=== PATIENT | female | born 1990 | race Caucasian/White ===

== ENCOUNTER 2023-07-15 11:02 | Emergency (ER) | payer BC ==
--- NOTE | 2023-07-15 11:51 | ED ---
General Adult HPI - General Chief complaint: Shortness of Breath Stated complaint: SHEILA, 35 wks Time Seen by Provider: 07/15/23 11:18 Source: patient Mode of arrival: ambulatory Limitations: no limitations - History of Present Illness Initial comments: 33 year old Female presenting to the ED with a chief complaint of dyspnea. Patient states has had some upper respiratory symptoms and dyspnea for the past few days. Was tested and diagnosed with COVID today. States due to her symptoms she called her OB who advised her to present to the ED for further evaluation. Today, patient reports shortness of breath significantly improved from last night. States that she is more worried about the baby and she is herself. Chest pain. No abdominal pain. No vaginal bleeding. No other complaints. - Related Data Allergies Allergy/AdvReac Type Severity Reaction Status Date / Time Sulfa (Sulfonamide Allergy Rash/Hives Verified 07/15/23 11:12 Antibiotics) Review of Systems ROS Statement: Those systems with pertinent positive or pertinent negative responses have been documented in the HPI. ROS Other: All systems not noted in ROS Statement are negative. Past Medical History Past Medical History: No Reported History History of Any Multi-Drug Resistant Organisms: None Reported Past Surgical History: No Surgical Hx Reported Past Psychological History: Anxiety, Depression Smoking Status: Never smoker Past Alcohol Use History: None Reported Past Drug Use History: None Reported General Exam Limitations: no limitations General appearance: alert, in no apparent distress Neck exam: Present: normal inspection Respiratory exam: Present: normal lung sounds bilaterally Cardiovascular Exam: Present: regular rate, normal rhythm GI/Abdominal exam: Present: soft Neurological exam: Present: alert, oriented X3 Skin exam: Present: warm, dry Course Vital Signs 07/15/23 11:09 Temperature 97.9 F Pulse Rate 124 H Respiratory 20 Rate Blood Pressure 105/71 O2 Sat by Pulse 97 Oximetry - Reevaluation(s) Reevaluation #1: Evaluated OB nurse. Reports good heart tones. 07/15/23 13:20 Medical Decision Making - Medical Decision Making Was pt. sent in by a medical professional or institution (, PA, BAND INSTRUMENT MAKER, urgent care, hospital, or fdc...) When possible be specific @ -No Did you speak to anyone other than the patient for history (EMS, parent, family, police, friend...)? What history was obtained from this source @ -No Did you review nursing and triage notes (agree or disagree)? Why? @ -I reviewed and agree with nursing and triage notes Were old charts reviewed (outside hosp., previous admission, EMS record, old EKG, old radiological studies, urgent care reports/EKG's, fdc records)? Report findings @ -No old charts were reviewed Differential Diagnosis (chest pain, altered mental status, abdominal pain women, abdominal pain men, vaginal bleeding, weakness, fever, dyspnea, syncope, headache, dizziness, GI bleed, back pain, seizure, CVA, palpatations, mental health, musculoskeletal)? @ -Differential Dyspnea: Coronary syndrome, arrhythmia, tamponade, asthma, COPD, pulmonary embolism, pneumonia, pneumothorax, pulmonary effusion, anaphylaxis, diabetic ketoacidosis, flailed chest, pulmonary contusion, diaphragmatic rupture, anemia, neuromuscular, this is not meant to be an all-inclusive list. EKG interpreted by me (3pts min.). @ -None X-rays interpreted by me (1pt min.). @ -X-ray was offered in context of dyspnea however patient reports at this time dyspnea resolved and would not like to have chest x-ray due to her currently being . CT interpreted by me (1pt min.). @ -None done U/S interpreted by me (1pt. min.). @ -None done What testing was considered but not performed or refused? (CT, X-rays, U/S, labs)? Why? @ -None What meds were considered but not given or refused? Why? @ -None Did you discuss the management of the patient with other professionals (professionals i.e. , PA, BAND INSTRUMENT MAKER, lab, RT, psych nurse, social media editor, cotton candy maker, teacher, foreign policy officer, supervisor case loading)? Give summary @ -No Was smoking cessation discussed for >3mins.? @ -No Was critical care preformed (if so, how long)? @ -No Were there social determinants of health that impacted care today? How? (Homelessness, low income, unemployed, alcoholism, drug addiction, transportation, low edu. Level, literacy, decrease access to med. care, long term, rehab)? @ -No Was there de-escalation of care discussed even if they declined (Discuss DNR or withdrawal of care, Hospice)? DNR status @ -No What co-morbidities impacted this encounter? (DM, HTN, Smoking, COPD, CAD, Cancer, CVA, ARF, Chemo, Hep., AIDS, mental health diagnosis, sleep apnea, morbid obesity)? @ - Was patient admitted / discharged? Hospital course, mention meds given and route, prescriptions, significant lab abnormalities, going to OR and other pertinent info. @ -Disharge 33-year-old female who is currently 35 weeks presents to the ED with concerns of dyspnea last night however now resolved. Patient reports that she is more so worried about baby and herself. Patient seen by OB nurse reported good heart tones. Patient was offered to be transferred upstairs for further monitoring however at this time patient declined. Patient discharged home in stable condition. Discussed return precautions with patient who verbalizes treatment. Undiagnosed new problem with uncertain prognosis? @ -No Drug Therapy requiring intensive monitoring for toxicity (Heparin, Nitro, Insulin, Cardizem)? @ -No Were any procedures done? @ -No Diagnosis/symptom? @ -Dyspnea, now resolved Acute, or Chronic, or Acute on Chronic? @ -Acute Uncomplicated (without systemic symptoms) or Complicated (systemic symptoms)? @ -Uncomplicated Side effects of treatment? @ -No Exacerbation, Progression, or Severe Exacerbation? @ -No Poses a threat to life or bodily function? How? (Chest pain, USA, ME, pneumonia, PE, COPD, DKA, ARF, appy, cholecystitis, CVA, Diverticulitis, Homicidal, Suicidal, threat to staff... and all critical care pts) @ -No - Lab Data Lab Results 07/15/23 Range/Units 12:06 Urine Color Crisp Urine Appearance Clear (Clear) Urine pH 6.0 (5.0-8.0) Ur Specific [place] 1.030 (1.001-1.035) Urine Protein 1+ H (Negative) Urine Glucose (UA) Negative (Negative) Urine Ketones Negative (Negative) Urine Blood Negative (Negative) Urine Nitrite Negative (Negative) Urine Bilirubin Negative (Negative) Urine Urobilinogen 2.0 (<2.0) mg/dL Ur Leukocyte Esterase Moderate (Negative) Urine RBC 5 (0-5) /hpf Urine WBC 23 H (0-5) /hpf Urine WBC Clumps Few H (None) /hpf Ur Squamous Epith Cells 35 H (0-4) /hpf Calcium Oxalate Crystal Few H (None) /hpf Urine Bacteria Rare H (None) /hpf Urine Mucus Many H (None) /hpf Disposition Clinical Impression: Dyspnea Disposition: HOME SELF-CARE Condition: Good Additional Instructions: Please return to the Emergency Department if symptoms worsen or any other concerns. Please follow-up with your OPTICAL SCIENTIST. Is patient prescribed a controlled substance at d/c from ED?: No Referrals: None,Stated [Primary Care Provider] - 1-2 days Time of Disposition: 13:25
[2023-07-15 11:52] VITALS: RESP 20; TEMP 97.9
[2023-07-15 13:03] LABS: Appearance,Urine Clear (Clear); Color,Urine Orange
[2023-07-15 13:04] LABS: Glucose,Urine (UA) Negative (Negative); Protein,Urine 1+ (Negative)
[2023-07-15 13:05] LABS: Bilirubin,Urine Negative (Negative); Blood,Urine Negative (Negative); Ketones,Urine Negative (Negative); Leukocyte Esterase,Urine Moderate (Negative); Nitrite,Urine Negative (Negative)
[2023-07-15 13:10] LABS: Bacteria,Urine Rare /hpf; Calcium Oxalate Crystals,Urine Few /hpf; Mucus,Urine Many /hpf; RBC,Urine 5 /hpf (0-5); Squamous Epithelial Cell,Urine 35 /hpf (0-4); WBC,Urine 23 /hpf (0-5)
[2023-07-15 13:53] VITALS: BP 110/68; PULSE 92
== END 2023-07-15 13:41 | disposition home or self-care (01) ==
LOC: EC 11:02
DX: O99.891 Other specified diseases and conditions complicating pregnancy (principal); R06.00 Dyspnea, unspecified; Z88.2 Allergy status to sulfonamides; Z86.59 Personal history of other mental and behavioral disorders; Z3A.35 35 weeks gestation of pregnancy
CPT/HCPCS: 81001; 99284

== ENCOUNTER 2023-07-28 16:44 | Observation (INO) | payer BC ==
[2023-07-28 18:21] LABS: Creatinine,Urine Random 138.9 mg/dL; Protein/Creatinine Ratio,Urine 0.079
[2023-07-28 18:35] LABS: Basophils % (A) 0 %; Eosinophils # (A) 0.1 k/uL (0-0.7); Eosinophils % (A) 1 %; HGB 12.4 gm/dL (11.4-16.0); Lymphocytes % (A) 17 %; MCH 27.5 pg (25.0-35.0); MCHC 32.7 g/dL (31.0-37.0); Monocytes # (A) 0.7 k/uL (0-1.0); Monocytes % (A) 5 %; Neutrophils # (A) 8.9 k/uL (1.3-7.7); Neutrophils % (A) 74 %; Platelet Count 253 k/uL (150-450); RBC 4.53 m/uL (3.80-5.40); RDW 14.4 % (11.5-15.5)
[2023-07-28 18:41] LABS: ALT 55 U/L (4-34); AST 34 U/L (14-36); African American GFR (CKD) >90 (>60 ml/min/1.73 sqM); Blood Urea Nitrogen 8 mg/dL (7-17); LDH 157 U/L (120-246); Non-African American GFR(CKD) >90 (>60 ml/min/1.73 sqM); Uric Acid 5.2 mg/dL (3.7-7.4)
[2023-07-28] MEDS ORDERED: ACETAMINOPHEN TAB 325 MG TAB PO PRN (19:13)
[2023-07-29 05:41] LABS: Creatinine,Urine Random 153.1 mg/dL; Protein/Creatinine Ratio,Urine 0.085
[2023-07-29 06:35] LABS: Amorphous Sediment,Urine Rare /hpf; Appearance,Urine Cloudy (Clear); Bacteria,Urine Rare /hpf; Bilirubin,Urine Negative (Negative); Blood,Urine Negative (Negative); Calcium Oxalate Crystals,Urine Moderate /hpf; Color,Urine Yellow; Glucose,Urine (UA) Negative (Negative); Ketones,Urine Negative (Negative); Leukocyte Esterase,Urine Moderate (Negative); Mucus,Urine Rare /hpf; Nitrite,Urine Negative (Negative); PH, Urine 6.5 (5.0-8.0); Protein,Urine Trace (Negative); RBC,Urine <1 /hpf (0-5); Specific Gravity,Urine 1.022 (1.001-1.035); Squamous Epithelial Cell,Urine 31 /hpf (0-4); Urobilinogen,Urine <2.0 mg/dL (<2.0); WBC,Urine 5 /hpf (0-5)
[2023-07-29 07:05] LABS: Basophils % (A) 0 %; Eosinophils # (A) 0.1 k/uL (0-0.7); Eosinophils % (A) 2 %; HGB 11.4 gm/dL (11.4-16.0); Lymphocytes # (A) 1.8 k/uL (1.0-4.8); Lymphocytes % (A) 18 %; MCH 28.1 pg (25.0-35.0); MCHC 33.4 g/dL (31.0-37.0); MCV 84.1 fL (80.0-100.0); Mean Platelet Volume 8.7; Monocytes # (A) 0.6 k/uL (0-1.0); Monocytes % (A) 6 %; Neutrophils # (A) 6.9 k/uL (1.3-7.7); Neutrophils % (A) 72 %; Platelet Count 227 k/uL (150-450); RBC 4.04 m/uL (3.80-5.40); RDW 14.3 % (11.5-15.5); WBC 9.6 k/uL (3.8-10.6)
[2023-07-29 07:56] LABS: ALT 47 U/L (4-34); AST 34 U/L (14-36); African American GFR (CKD) >90 (>60 ml/min/1.73 sqM); Blood Urea Nitrogen 9 mg/dL (7-17); LDH 130 U/L (120-246); Non-African American GFR(CKD) >90 (>60 ml/min/1.73 sqM); Uric Acid 5.4 mg/dL (3.7-7.4)
[2023-07-29 07:57] VITALS: BP 138/87; PULSE 80; RESP 16; TEMP 97.9
--- NOTE | 2023-07-29 08:32 | P.HPOB ---
History of Present Illness H&P Date: 07/29/23 Chief Complaint: IUP 37 1/7 weeks, swelling This is a 33-year-old 1 para 0 at 37 and one sevenths weeks that presented to labor and delivery last evening with complaints of increased swelling. Patient states she has been monitored for blood pressure through the and has a scheduled induction of labor secondary to gestational hypertension next week on 08/04. Patient noted good movement denied other preeclampsia signs or symptoms. Blood pressures in triage were noted to be 130s over 140s over 80s. Patient had noted elevation of her ALT of 55, uric acid of 5.2 otherwise normal preeclampsia labs. Urine protein creatinine ratio was noted to be 0.079. Review of Systems Constitutional: Denies chills, Denies fatigue, Denies fever Ears, nose, mouth and throat: Denies headache Cardiovascular: Reports leg edema Respiratory: Denies dyspnea Gastrointestinal: Denies constipation, Denies diarrhea, Denies nausea, Denies vomiting Genitourinary: Reports Past Medical History Past Medical History: No Reported History History of Any Multi-Drug Resistant Organisms: None Reported Past Surgical History: No Surgical Hx Reported Past Anesthesia/Blood Transfusion Reactions: No Reported Reaction Past Psychological History: Anxiety, Depression Smoking Status: Former smoker Past Alcohol Use History: None Reported Past Drug Use History: None Reported Medications and Allergies Home Medications Medication Instructions Recorded Confirmed Type ARIPiprazole [Abilify] 5 mg PO DAILY 07/28/23 07/28/23 History Aspirin [Adult Low Dose Aspirin EC] 81 mg PO DAILY 07/28/23 07/28/23 History B6/Mfolate/B12/Mineral/[id number] 1 each PO DAILY 07/28/23 07/28/23 History [Femquil Capsule] Doxylamine Succinate [Unisom] 25 mg PO DAILY 07/28/23 07/28/23 History FLUoxetine HCL [PROzac] 40 mg PO DAILY 07/28/23 07/28/23 History Pnv 11/Iron Fum/Folic Acid/Om3 1 each PO DAILY 07/28/23 07/28/23 History [Wesnate Dha Softgel] Allergies Allergy/AdvReac Type Severity Reaction Status Date / Time Sulfa (Sulfonamide Allergy Rash/Hives Verified 07/15/23 11:12 Antibiotics) Exam Osteopathic Statement: *. No significant issues noted on an osteopathic structural exam other than those noted in the History and Physical/Consult. Vital Signs Temp Pulse Resp BP Pulse Ox 07/29/23 07:22 97.9 F 80 16 138/87 07/28/23 18:55 18 136/67 07/28/23 17:20 96.6 F L 90 18 143/84 98 Intake and Output 07/28/23 07/29/23 07/29/23 22:59 06:59 14:59 Other: # Voids 1 2 Weight 137.438 kg target physical exam was done on this date in general this is a well nourished well-developed female in no acute distress, breathing is noted to be nonlabored, heart has a regular rhythm, abdomen is gravid. heart tones are noted to be category 1 and she is not martine. Results Result Diagrams: 07/29/23 06:34 07/29/23 06:34 Abnormal Lab Results - Last 24 Hours (Table) 07/28/23 07/28/23 07/29/23 Range/Units 18:20 18:20 05:20 WBC 12.0 H (3.8-10.6) k/uL Neutrophils # 8.9 H (1.3-7.7) k/uL ALT 55 H (4-34) U/L Urine Appearance Cloudy H (Clear) Urine Protein Trace H (Negative) Ur Leukocyte Esterase Moderate H (Negative) Ur Squamous Epith Cells 31 H (0-4) /hpf Calcium Oxalate Crystal Moderate H (None) /hpf Amorphous Sediment Rare H (None) /hpf Urine Bacteria Rare H (None) /hpf Urine Mucus Rare H (None) /hpf 07/29/23 Range/Units 06:34 WBC (3.8-10.6) k/uL Neutrophils # (1.3-7.7) k/uL ALT 47 H (4-34) U/L Urine Appearance (Clear) Urine Protein (Negative) Ur Leukocyte Esterase (Negative) Ur Squamous Epith Cells (0-4) /hpf Calcium Oxalate Crystal (None) /hpf Amorphous Sediment (None) /hpf Urine Bacteria (None) /hpf Urine Mucus (None) /hpf Assessment and Plan (1) 37 weeks gestation of Current Visit: Yes Status: Acute Code(s): Z3A.37 - 37 WEEKS GESTATION OF SNOMED Code(s): 61587688 (2) Gestational HTN Current Visit: Yes Status: Acute Code(s): O13.9 - GESTATIONAL HTN W/O SIGNIFICANT PROTEINURIA, UNSP TRIMESTER SNOMED Code(s): 77998762 (3) Obesity Current Visit: Yes Status: Acute Code(s): E66.9 - OBESITY, UNSPECIFIED SNOMED Code(s): 305520484 Plan: 33-year-old 1 para 0 at 37 and one sevenths weeks for stenting with increased swelling. Patient has been being monitored for gestational hypertension. Patient had elevated blood pressures at home and swelling th erefore presented to labor and delivery. Preeclampsia labs were completed with noted elevation of a LT of 55. Pressures were noted to be normal with in triage. Patient was counseled on observation overnight for repeat labs and continued blood pressure monitoring through the night. Patient stated understanding and will plan to repeat preeclampsia labs at 5 AM.
--- NOTE | 2023-07-29 08:36 | P.DS ---
Providers Date of admission: 07/28/23 19:00 Expected date of discharge: 07/29/23 Attending physician: Tonya Mota MD Primary care physician: Stated None - Discharge Diagnosis(es) (1) 37 weeks gestation of Current Visit: Yes Status: Acute (2) Gestational HTN Current Visit: Yes Status: Acute (3) Obesity Current Visit: Yes Status: Acute Hospital Course: 33-year-old 1 para 0 at 37-2/7 weeks that presented last evening with complaints of increased swelling in noted gestational hypertension. Patient has scheduled induction of labor on 08/04 at 38 and one sevenths weeks for gestational hypertension. Patient was observed overnight with noted blood pressures 130s to 140s over 70s to 80s. Patient denies signs or symptoms of preeclampsia. Patient notes good movement. Patient has had routine category 1 heart tones through the night. Preeclampsia labs were repeated this morning with noted decreased and ALT 247 from 55. Normal AST uric acid stable at 5.4. Protein creatinine ratio this morning slightly increased from 0.0792 0.085 still within normal limits patient denies signs or symptoms of preeclampsia this morning and states she is feeling well. Lab results were dis cussed with patient in detail and plan discharge home. Patient states she is off work this week secondary to the [place] holiday and the week prior to delivery. Patient states she is comfortable with going home. Blood pressure monitoring at home is discussed with patient. She states she does have a blood pressure cuff. Patient is to repeat presented to the hospital blood pressures greater than 140s over 90s or preeclampsia signs or symptoms. Patient Condition at Discharge: Good Plan - Discharge Summary New Discharge Prescriptions: No Action ARIPiprazole [Abilify] 5 mg PO DAILY Doxylamine Succinate [Unisom] 25 mg PO DAILY Aspirin [Adult Low Dose Aspirin EC] 81 mg PO DAILY FLUoxetine HCL [PROzac] 40 mg PO DAILY Pnv 11/Iron Fum/Folic Acid/Om3 [Wesnate Dha Softgel] 1 each PO DAILY B6/Mfolate/B12/Mineral/[id number] [Femquil Capsule] 1 each PO DAILY Discharge Medication List ARIPiprazole [Abilify] 5 mg PO DAILY 07/28/23 [History] Aspirin [Adult Low Dose Aspirin EC] 81 mg PO DAILY 07/28/23 [History] B6/Mfolate/B12/Mineral/[id number] [Femquil Capsule] 1 each PO DAILY 07/28/23 [Hi story] Doxylamine Succinate [Unisom] 25 mg PO DAILY 07/28/23 [History] FLUoxetine HCL [PROzac] 40 mg PO DAILY 07/28/23 [History] Pnv 11/Iron Fum/Folic Acid/Om3 [Wesnate Dha Softgel] 1 each PO DAILY 07/28/23 [History] Follow up Appointment(s)/Referral(s): Tonya Mota MD [STAFF PHYSICIAN] - 1 Week Discharge Disposition: HOME SELF-CARE
== END 2023-07-29 10:30 | disposition home or self-care (01) ==
LOC: FBPOP 16:44 → 4FBP 19:00
PROVIDERS: ADMIT Obstetrics & Gynecology Obstetrics; ATTEND Obstetrics & Gynecology
DX: O13.3 Gestational [pregnancy-induced] hypertension without significant proteinuria, third trimester (principal); O99.343 Other mental disorders complicating pregnancy, third trimester; F32.A Depression, unspecified; F41.9 Anxiety disorder, unspecified; O99.213 Obesity complicating pregnancy, third trimester; E66.9 Obesity, unspecified; Z3A.37 37 weeks gestation of pregnancy; Z87.891 Personal history of nicotine dependence; Z79.82 Long term (current) use of aspirin; Z79.899 Other long term (current) drug therapy; Z88.2 Allergy status to sulfonamides
CPT/HCPCS: 59025; 99213; 82570 ×2; 84156 ×2; 82565 ×2; 83615 ×2; 84450 ×2; 84460 ×2; 84520 ×2; 84550 ×2; 85025 ×2; 81001; G0378 ×3

== ENCOUNTER 2023-07-31 19:16 | Outpatient (CLI) | payer BC ==
[2023-07-31 20:40] LABS: Basophils % (A) 0 %; Eosinophils # (A) 0.1 k/uL (0-0.7); Eosinophils % (A) 1 %; HCT 35.3 % (34.0-46.0); HGB 11.5 gm/dL (11.4-16.0); Lymphocytes # (A) 2.1 k/uL (1.0-4.8); Lymphocytes % (A) 21 %; MCH 27.5 pg (25.0-35.0); MCHC 32.7 g/dL (31.0-37.0); Mean Platelet Volume 8.9; Monocytes # (A) 0.6 k/uL (0-1.0); Monocytes % (A) 6 %; Neutrophils # (A) 6.8 k/uL (1.3-7.7); Neutrophils % (A) 69 %; Platelet Count 267 k/uL (150-450); RDW 14.7 % (11.5-15.5); WBC 9.9 k/uL (3.8-10.6)
[2023-07-31 20:54] LABS: ALT 56 U/L (4-34); AST 41 U/L (14-36); African American GFR (CKD) >90 (>60 ml/min/1.73 sqM); Blood Urea Nitrogen 10 mg/dL (7-17); LDH 139 U/L (120-246); Non-African American GFR(CKD) >90 (>60 ml/min/1.73 sqM); Uric Acid 5.6 mg/dL (3.7-7.4)
[2023-07-31 21:08] LABS: Creatinine,Urine Random 202.6 mg/dL; Protein/Creatinine Ratio,Urine 0.054
[2023-07-31 21:28] LABS: Appearance,Urine Cloudy (Clear); Bacteria,Urine Rare /hpf; Bilirubin,Urine Negative (Negative); Blood,Urine Negative (Negative); Color,Urine Yellow; Glucose,Urine (UA) Negative (Negative); Ketones,Urine Negative (Negative); Leukocyte Esterase,Urine Large (Negative); Mucus,Urine Rare /hpf; Nitrite,Urine Negative (Negative); PH, Urine 6.5 (5.0-8.0); Protein,Urine 1+ (Negative); RBC,Urine 4 /hpf (0-5); Specific Gravity,Urine 1.029 (1.001-1.035); Squamous Epithelial Cell,Urine 31 /hpf (0-4); Urobilinogen,Urine <2.0 mg/dL (<2.0); WBC,Urine 8 /hpf (0-5)
[2023-07-31 21:55] VITALS: BP 142/79; PULSE 75; RESP 16; TEMP 97.2
--- NOTE | 2023-08-11 12:12 | P.MSEPDOC ---
Presenting Problems - Arrival Data Date of Arrival on Unit: 07/31/23 Time of Arrival on Unit: 19:16 Mode of Transport: Ambulatory - Complaint OB-Reason for Admission/Chief Complaint: PIH Comment: Patient presents with complaints of an elevated blood pressure at home of 168/98. The patient states she had a headache and noted some facial swelling today. The patient states she took tylenol at home and that did work to alleviate the headache. The patient has a history of gestational hypertension this and is scheduled for induction on thursday. The patient states she was admitted on the L&D unit on thursday for elevated liver enzymes and then discharged home on thursday. Medical History - Information : 1 Para: 0 Term: 0 : 0 Abortions: Spontaneous or Elective: 0 Number of Living Children: 0 - Gestational Age Gestational Age by GARRET (wks/days): 89 Weeks and 5 Days - History Comment: Gestational hypertension Review of Systems - Review of Systems Constitutional: No problems Breast: No problems ENT: No problems Cardiovascular: No problems Respiratory: No problems Gastrointestinal: No problems Genitourinary: No problems Musculoskeletal: No problems Neurological: No problems Skin: No problems Vital Signs - Temperature Temperature: 97.2 F Temperature Source: Temporal Artery Scan - Pulse Pulse Oximetery Pulse Rate: 75 Pulse Assessment Method: Automatic Cuff - Respirations Respiratory Rate: 16 Oxygen Delivery Method: Room Air - Blood Pressure Sitting Blood Pressure: 142/79 Blood Pressure Mean: 100 Blood Pressure Source: Automatic Cuff Medical Screen Scoring - Cervical Exam Membranes: Intact - Uterine Contractions Intensity: Mild Resting: Soft to palpation - Assessment - Baby A Baseline FHR: 120 Heart Rate - NICHD Category: Category I (Normal) NST: Reactive Physician Notification - Physician Notified Physician Notified Date: 07/31/23 Physician Notified Time: 20:04 Physician: Fabi Zeng Order Received: Yes - Notification Comment Comment: Draw [facility] labs and send an OB urine for protein creatinine ratio. 2116: Orders given to discharge patient home with instructions patient to follow up with Dr. Mota as previously scheduled. Maternal Triage Index - Prompt/Priority 3 Prompt Priority 3: Yes Criteria Met for Priority 3: 37 4/7 patient presents with complaints of an elevated blood pressure at home. On arrival to the unit blood pressure 142/79. Patient states she did have a headache today relieved with tylenol and did notice some facial swelling. No edema on physical exam, reflexes 1+ no clonus present. Patient denies visual changes, or epigastric pain reported. The patient does report nausea, however, she states she has been nauseated her entire so this is not a new symptom for her. Disposition - Disposition OB Disposition: Discharge to home, Written follow up instructions reviewed Discharge Date: 07/31/23 Discharge Time: 21:29 I agree with the RN Medical Screening Exam: Yes Case reviewed; plan agreed upon as documented in EMR&OBIX.: Yes Diagnosis: PIH
== END 2023-07-31 21:29 | disposition home or self-care (01) ==
LOC: FBPOP 19:16
PROVIDERS: ATTEND Obstetrics & Gynecology
DX: O13.3 Gestational [pregnancy-induced] hypertension without significant proteinuria, third trimester (principal); Z88.2 Allergy status to sulfonamides; Z79.82 Long term (current) use of aspirin; Z3A.37 37 weeks gestation of pregnancy
CPT/HCPCS: 59025; 81001; 82565; 82570; 83615; 84156; 84450; 84460; 84520; 84550; 85025; 99215

== ENCOUNTER 2023-08-04 06:00 | Inpatient (IN) | payer BC ==
[2023-08-04] MEDS ORDERED: CARBOPROST TROMETHAMINE 250 MCG/ML 1 ML AMP IM PRN (06:18)
[2023-08-04] MEDS ORDERED: OXYTOCIN 10 UNIT/ML 1 ML VIAL IM PRN (06:18)
[2023-08-04] MEDS ORDERED: METHYLERGONOVINE 0.2 MG/ML 1 ML AMP IM PRN (06:18)
[2023-08-04] MEDS ORDERED: TRANEXAMIC 1,000 MG/100ML-NACL 1,000 MG in EMPTY BAG 1 BAG IV PRN (06:18)
[2023-08-04] MEDS ORDERED: miSOPROStoL 200 MCG TAB PO PRN (06:18)
[2023-08-04] MEDS ORDERED: TERBUTALINE 1 MG/ML VIAL SQ PRN (06:18)
[2023-08-04] MEDS ORDERED: LIDOCAINE 0.5% (PF) 5 MG/ML (50 ML SDV) SQ PRN (06:18)
[2023-08-04] MEDS ORDERED: OXYTOCIN 30 UNITS/500 ML NS 30 UNIT in SALINE 1 500ML.BAG IV SCH (06:30)
[2023-08-04] MEDS: LACTATED RINGERS 1,000 ML IV SCH ×2 (06:37→16:44)
[2023-08-04 06:59] LABS: Basophils % (A) 0 %; Eosinophils # (A) 0.2 k/uL (0-0.7); Eosinophils % (A) 2 %; HCT 35.1 % (34.0-46.0); HGB 11.8 gm/dL (11.4-16.0); Lymphocytes # (A) 1.8 k/uL (1.0-4.8); Lymphocytes % (A) 19 %; MCH 28.2 pg (25.0-35.0); MCHC 33.6 g/dL (31.0-37.0); MCV 83.8 fL (80.0-100.0); Mean Platelet Volume 8.9; Monocytes # (A) 0.5 k/uL (0-1.0); Monocytes % (A) 6 %; Neutrophils # (A) 6.9 k/uL (1.3-7.7); Neutrophils % (A) 71 %; Platelet Count 246 k/uL (150-450); RBC 4.18 m/uL (3.80-5.40); RDW 15.1 % (11.5-15.5); WBC 9.6 k/uL (3.8-10.6)
[2023-08-04] MEDS ORDERED: PENICILLIN G POTASSIUM 5,000,000 UNIT in DEXTROSE 5% IN WATER 100 ML IVPB STA ×2 (07:05)
[2023-08-04] MEDS: PENICILLIN G POTASSIUM 2,500,000 UNIT in DEXTROSE 5% IN WATER 100 ML IVPB SCH ×6 (11:28→20:17)
--- NOTE | 2023-08-04 12:45 | P.HPOB ---
History of Present Illness H&P Date: 08/04/23 Chief Complaint: Medical induction of labor for gestational hypertension Ms. Neal is a 33 year old at 38 weeks and 1 day with EDC of 08/17/2022 (by LMP consistent with 8 week US) who presents to labor and delivery for medical induction of labor for gestational hypertension. PIH labs on 07/29 were within normal limits besides a mildly elevated AST. The has also been complicated by a maternal history of anxiety and depression for which she is taking 2.5 mg daily of Abilify and 20mg daily of Prozac. The patient was also recently infected with COVID on 07/14. The fetus is measuring in the 88%ile by a 32 week US. work-up: blood type O positive, antibody negative, rubella immune, VDRL non-reactive, HBsAg negative, HIV negative, gonorrhea negative, chlamydia negative, 1 hour GTT within normal limits, GBS positive. Past Medical History Past Medical History: No Reported History History of Any Multi-Drug Resistant Organisms: None Reported Past Surgical History: No Surgical Hx Reported Past Anesthesia/Blood Transfusion Reactions: No Reported Reaction Past Psychological History: Anxiety, Depression Smoking Status: Never smoker Past Alcohol Use History: None Reported Past Drug Use History: None Reported - Past Family History Father Family Medical History: No Reported History Medications and Allergies Home Medications Medication Instructions Recorded Confirmed Type ARIPiprazole [Abilify] 5 mg PO DAILY 07/28/23 08/04/23 History Aspirin [Adult Low Dose Aspirin EC] 81 mg PO DAILY 07/28/23 08/04/23 History B6/Mfolate/B12/Mineral/[id number] 1 each PO DAILY 07/28/23 08/04/23 History [Femquil Capsule] Doxylamine Succinate [Unisom] 25 mg PO DAILY 07/28/23 08/04/23 History FLUoxetine HCL [PROzac] 40 mg PO DAILY 07/28/23 08/04/23 History Pnv 11/Iron Fum/Folic Acid/Om3 1 each PO DAILY 07/28/23 08/04/23 History [Wesnate Dha Softgel] Allergies Allergy/AdvReac Type Severity Reaction Status Date / Time Sulfa (Sulfonamide Allergy Rash/Hives Verified 08/04/23 06:11 Antibiotics) Exam Vital Signs Temp Resp BP 08/04/23 07:30 97.8 F 16 129/73 Intake and Output 08/03/23 08/04/23 08/04/23 22:59 06:59 14:59 Other: Weight 141.974 kg 141.974 kg Focused physical exam is performed. This is a healthy-appearing in no apparent distress. Breathing is non-labored. Abdomen is gravid and non-tender. Cervical exam is 2 cm, 50 effacement, -3 station. AROM is undertaken with clear fluid noted. Extremeties non-tender and non-edematous. heart tones are Category I and tocometer is graphing contractions every 2-4 minutes. Results Result Diagrams: 08/04/23 06:40 Assessment and Plan Assessment: 33 year old at 38 weeks and 1 day being medically induced for gestational hypertension Plan: Admit, clear liquid diet, pitocin per protocol, epidural prn, continuous EFM and tocometer, close monitoring of patient
[2023-08-04] MEDS ORDERED: SODIUM CHLORIDE 0.9% 250 ML BAG ONE (17:16)
[2023-08-04] MEDS ORDERED: fentaNYL (PF) 50 MCG/ML 5 ML AMP ONE (17:16)
[2023-08-04] MEDS ORDERED: ROPIVACAINE 5 MG/ML 30 ML VIAL ONE (17:16)
[2023-08-05] MEDS: PENICILLIN G POTASSIUM 2,500,000 UNIT in DEXTROSE 5% IN WATER 100 ML IVPB SCH ×6 (00:22→21:02)
[2023-08-05] MEDS: LACTATED RINGERS 1,000 ML IV SCH ×6 (03:40→19:41)
[2023-08-05] MEDS ORDERED: AZITHROMYCIN 500 MG in SODIUM CHLORIDE 0.9% 250 ML IVPB STA (04:55)
[2023-08-05] MEDS ORDERED: ceFAZolin 3 GM in SODIUM CHLORIDE 0.9% 100 ML IVPB ONE (04:55)
[2023-08-05] MEDS ORDERED: CITRIC ACID-SODIUM CITRATE 15 ML CUP PO ONE (05:10)
[2023-08-05] MEDS ORDERED: MORPHINE SULFATE (PF) 0.3 MG/0.3 ML SYR ONE (05:22)
[2023-08-05] MEDS ORDERED: ONDANSETRON 4 MG/2 ML VIAL ONE (05:22)
[2023-08-05] MEDS ORDERED: OXYTOCIN 30 UNITS/500 ML NS BAG IV ONE (05:22)
[2023-08-05] MEDS ORDERED: KETOROLAC 30 MG/ML 1 ML VIAL ONE (05:22)
[2023-08-05] MEDS ORDERED: fentaNYL (PF) 50 MCG/ML 2 ML AMP ONE (05:22)
[2023-08-05] MEDS ORDERED: ONDANSETRON 4 MG/2 ML VIAL IVP PRN ×2 (06:26→06:28)
[2023-08-05] MEDS ORDERED: HYDROmorphone 0.5 MG/0.5 ML SYRINGE IVP PRN (06:26)
[2023-08-05] MEDS ORDERED: NALOXONE 0.4 MG/ML 1 ML VIAL IV PRN ×2 (06:26→06:28)
[2023-08-05] MEDS ORDERED: diphenhydrAMINE 50 MG/ML 1 ML VIAL IVP PRN ×3 (06:26→06:28)
[2023-08-05] MEDS ORDERED: KETOROLAC 15 MG/ML 1 ML VIAL IVP PRN (06:26)
[2023-08-05] MEDS ORDERED: diphenhydrAMINE 50 MG CAP PO PRN (06:28)
[2023-08-05] MEDS ORDERED: SIMETHICONE 80 MG CHEWABLE PO PRN (06:28)
[2023-08-05] MEDS ORDERED: diphenhydrAMINE 25 MG CAP PO PRN (06:28)
[2023-08-05] MEDS ORDERED: METOCLOPRAMIDE 5 MG/ML 2 ML VIAL IVP PRN (06:28)
[2023-08-05] MEDS ORDERED: ZOLPIDEM 5 MG TAB PO PRN (06:28)
--- NOTE | 2023-08-05 06:40 | P.OP ---
Date of Procedure: 08/05/23 Preoperative Diagnosis: 1. Term IUP at 38 weeks and 2 days 2. Gestational Hypertension 3. Failure to progress in active labor Postoperative Diagnosis: 1. Term IUP at 38 weeks and 2 days 2. Gestational Hypertension 3. Failure to progress in active labor 4. Occiput Posterior presentation Procedure(s) Performed: Primary Lower Transverse Section Implants: None Anesthesia: epidural Surgeon: Tonya Mota Franchise Consultant #1: Erick Jaimes Estimated Blood Loss (ml): 1,159 IV fluids (ml): 1,000 Urine output (ml): 100 (anamaria colored) Pathology: none sent Condition: stable Disposition: floor Indications for Procedure: Ms. Neal is a 33 year old at 38 weeks and 2 days who was being medically induced for gestational hypertension. At 8 centimeters she had failure to progress for 5 hours. Category II heart tones were noted as well with recurrent late decelerations and periods of minimal variability despite resuscitative measures. A patient-centered huddle was held and section was recommended for maternal and well-being. The risks, benefits, and alternatives to section were discussed with the patient including risk of bleeding, infection, damage to surrounding structures including bladder/bowels/ureters, and post-operative VTE. The patient understands these risks and desires to proceed with section. Operative Findings: Colorless amniotic fluid. Viable male in occiput posterior presentation. Apgars 8 and 9 at 1 and 5 minutes respectively. Weight 7 pounds and 8 ounces (3390 grams). Normal uterus, fallopian tubes, and ovaries with a small 2 centimeter right paratubal cyst noted. Description of Procedure: The patient was taken to the operating room where spinal anesthesia was found to be adequate. Three grams of Ancef and 500 milligrams of Azithromycin were given for infection prophylaxis. Vaginal prep was performed prior to the surgery. She was prepared and draped in the dorsal supine position with a leftward tilt. A Pfannenstiel skin incision was made with the scalpel. The incision was carried down to the fascia with a bovie. The fascia was incised and extended laterally with Rodriguez scissors. The superior aspect of the fascia was grasped with Diego clamps. The underlying rectus muscle was dissected off sharply with Rodriguez scissors. In a similar fashion, the inferior aspect of the fascia was elevated with Diego clamps and the rectus muscle and pyramidalis were dissected off. Excellent hemostasis was achieved with the bovie. The rectus muscle was in the midline down to the level of the pubic symphysis. Pre- peritoneal fatty tissue was bluntly dissected to expose the peritoneum. The peritoneum was found to be free of adherent bowel and entered sharply with Rodriguez scissors. The peritoneal incision was extended superiorly and inferiorly to the bladder reflection with good visualization of the bladder. The bladder blade was inserted and vesicouterine peritoneum was identified. Intraabdominal survey revealed scant, clear peritoneal fluid and the thinned-out lower uterine segment. The bladder blade was repositioned to keep the bladder out of the operative field. The lower uterine segment was incised with a scalpel. The amniotic sac was ruptured with an Allis clamp and clear fluid was noted. The uterine incision was extended bluntly with lateral and upward traction. The fetus was in occpiut posterior position. The head was elevated out of the pelvis with special attention paid to avoid using the uterine incision as a fulcrum. Gentle fundal pressure was applied once the head was brought into the incision. The was delivered with no difficulty. The mouth and nose were suctioned with a bulb. The cord was clamped and cut. Infant was noted to be spontaneously crying. The infant was handed off to the oxygen equipment preparer. IV oxytocin was initiated to facilitate uterine contractions. The placenta was delivered intact with manual massage of uterine fundus. The uterus was then exteriorized and the inside of the uterus was gently wiped with a lap sponge to assure complete removal of placental membranes. The uterine incision was closed with a 0- Polysorb suture in a running locked fashion. A second imbricating layer of 0- Polysorb was placed along the incision. The ovaries and tubes were found to be normal. The uterus, tubes, and ovaries were then gently returned to the abdominal cavity. The blood clots and fluid were wiped out of the abdomen and pelvis with moist laparotomy sponges. The pelvis was copiously suction irrigated. Additional figure of eight stitches were placed along the hysterotomy and Surgicel Powder was placed along the incision for bleeding prophylaxis. The uterine incision was reinspected and excellent hemostasis was noted. The fascial layer was closed with a 0-Vicryl suture. The subcutaneous tissue was reapproximated with 2-0 Plain Gut. The skin was closed with 4-0 Monocryl in a subcuticular fashion. The patient tolerated the procedure well. All the counts were correct times two. The patient was taken to the recovery room in a stable condition.
[2023-08-05] MEDS: SENNOSIDES-DOCUSATE SODIUM 1 EACH TAB PO SCH ×2 (09:41→19:44)
[2023-08-05] MEDS: ACETAMINOPHEN TAB 500 MG TAB PO SCH ×2 (09:42→17:28)
[2023-08-05] MEDS: IBUPROFEN 600 MG TAB PO SCH ×2 (13:30→19:44)
[2023-08-06] MEDS: ACETAMINOPHEN TAB 500 MG TAB PO SCH ×5 (00:18→23:39)
[2023-08-06] MEDS: IBUPROFEN 600 MG TAB PO SCH ×5 (03:34→20:29)
[2023-08-06] MEDS: LACTATED RINGERS 1,000 ML IV SCH ×5 (03:35→17:30)
--- NOTE | 2023-08-06 06:12 | P.PNOBGPC ---
Subjective - Subjective Principal diagnosis: s/p primary section Interval history: The patient is doing well this morning and had no acute events overnight. She has no complaints this morning. She reports minimal lochia, passing flatus, voiding without difficulty, ambulating, and eating/drinking without nausea or vomiting. She is her without difficulty. She denies chest pain, shortness of breathing, fevers, or chills overnight. She denies pain or swelling in the legs. Patient reports: Reports appetite normal, Reports voiding normally, Reports pain well controlled, Reports ambulating normally [place]: doing well, nursing well Objective - Vital Signs Latest vital signs: Vital Signs Temp Pulse Resp BP Pulse Ox 08/06/23 00:00 98.3 F 83 16 103/66 95 08/05/23 20:00 97.8 F 106 H 16 109/72 95 08/05/23 17:31 97.8 F 97 14 103/68 08/05/23 13:20 97.6 F 102 H 14 95/64 08/05/23 11:26 14 08/05/23 08:38 98.0 F 84 16 121/60 98 08/05/23 08:09 87 16 117/60 95 08/05/23 07:39 86 16 127/59 96 08/05/23 07:26 16 08/05/23 07:24 75 16 125/53 95 08/05/23 07:09 77 16 131/58 95 08/05/23 06:52 88 16 118/55 96 08/05/23 06:39 71 16 138/72 95 08/05/23 06:26 16 95 Intake and Output 08/05/23 08/05/23 08/06/23 14:59 22:59 06:59 Intake Total 300 1300 Output Total 160 750 400 Balance 140 550 -400 Intake: IV 1000 Oral 300 300 Output: Urine 150 750 400 Output, Quantitative 10 Blood Loss Other: Voiding Method Indwelling Catheter # Voids 3 1 - Exam Extremities: Present: normal Abdomen: Present: normal appearance, soft Incision: Present: normal, dry, intact Uterus: Present: normal, firm Assessment and Plan Assessment: 33 year old now POD#1 s/p primary section secondary to failure to progress Plan: 1. Postoperative. Patient meeting all milestones appropriately. 2. Gestational HTN. BPs normotensive since delivery. Asymptomatic. Continue to monitor. 3. Viable male infant. Will circumcise today. Dispo: Anticipate discharge home tomorrow on POD#2.
--- NOTE | 2023-08-06 06:35 | P.PN ---
Progress Note - Text Progress Note Date: 08/06/23 (9834) Anesthesia Postop day 1 Subjective: Status Post section with Duramorph. Patient seen and examined. Doing well without complaint. VAS 0. No nausea vomiting or pruritus. Afebrile. Gross lower extremity strength intact. Without apparent anesthetic complications. Objective: Vital signs reviewed Heart: Regular Rate Lungs: Good chest excursion Abdomen: Appears nondistended Assessment: Status post with Duramorph postop day 1 Plan: Continue current care with your medical management. Anticipated end to the Duramorph section around time today. You may see increased pain needs around this time.
[2023-08-06] MEDS: SENNOSIDES-DOCUSATE SODIUM 1 EACH TAB PO SCH ×2 (08:16→12:31)
[2023-08-06 08:19] LABS: Basophils % (A) 0 %; Eosinophils # (A) 0.2 k/uL (0-0.7); Eosinophils % (A) 2 %; HCT 21.1 % (34.0-46.0); Hypochromasia Slight; Lymphocytes # (A) 2.3 k/uL (1.0-4.8); Lymphocytes % (A) 22 %; MCH 28.4 pg (25.0-35.0); MCHC 33.1 g/dL (31.0-37.0); MCV 85.8 fL (80.0-100.0); Mean Platelet Volume 9.5; Monocytes # (A) 0.7 k/uL (0-1.0); Monocytes % (A) 6 %; Neutrophils # (A) 7.2 k/uL (1.3-7.7); Neutrophils % (A) 68 %; Platelet Count 190 k/uL (150-450); RBC 2.46 m/uL (3.80-5.40); RDW 14.9 % (11.5-15.5); WBC 10.6 k/uL (3.8-10.6)
[2023-08-07 01:06] VITALS: RESP 16
[2023-08-07] MEDS: IBUPROFEN 600 MG TAB PO SCH ×2 (03:04→09:25)
[2023-08-07] MEDS: ACETAMINOPHEN TAB 500 MG TAB PO SCH ×2 (07:01→12:29)
[2023-08-07] MEDS: SENNOSIDES-DOCUSATE SODIUM 1 EACH TAB PO SCH (09:28)
[2023-08-07 09:31] VITALS: BP 139/79; PULSE 101; TEMP 98.2
[2023-08-07] MEDS: LACTATED RINGERS 1,000 ML IV SCH ×2 (09:31)
--- NOTE | 2023-08-07 11:04 | P.PN ---
Progress Note - Text 08/07/23 623am Old female status post with spinal Duramorph. Patient seen and evaluated for postop pain control, patient has a VAS of 3 with no complains of nausea vomiting with mild pruritus which should subside.
--- NOTE | 2023-08-07 11:30 | P.DS ---
Providers Date of admission: 08/04/23 06:00 Expected date of discharge: 08/07/23 Attending physician: Tonya Mota MD Primary care physician: Stated None Hospital Course: Ms. Neal is a 33 year old now POD#2 s/p primary section 2/2 failure to progress. Her was complicated by gestational hypertension. Blood pressures have all been normotensive. The patient is doing well this morning and had no acute events overnight. She has no complaints this morning. She reports minimal lochia, passing flatus, voiding without difficulty, ambulating, and eating/drinking without nausea or vomiting. doing well at bedside, s/p circumcision. She denies chest pain, shortness of breathing, fevers, or chills overnight. She denies pain or swelling in the legs. Postoperative restrictions are reviewed with the patient including pelvic rest for 6 weeks, no lifting heavier than 15 pounds for 6 weeks. The patient is encouraged to call the office if she experiences any heavy bleeding, foul- smelling discharge, breast complaints, or any if she has any other concerns. She will follow up in the office with in 1 week for blood pressure check and 2 weeks for postoperative exam. She will go home with Motrin, Tylenol, and iron. All questions are answered. Assessment: 33 year old POD#2 s/p primary section Patient Condition at Discharge: Good Plan - Discharge Summary New Discharge Prescriptions: New Ferrous Sulfate [Iron (65 MG Elemental)] 325 mg PO DAILY #30 tab Ibuprofen [Motrin] 600 mg PO Q6HR PRN #30 tab PRN Reason: Mild Pain (Scale 1 To 3) Acetaminophen Tab [Tylenol] 650 mg PO Q6H PRN #30 tab PRN Reason: Mild Pain (Scale 1 To 3) No Action ARIPiprazole [Abilify] 5 mg PO DAILY Doxylamine Succinate [Unisom] 25 mg PO DAILY Aspirin [Adult Low Dose Aspirin EC] 81 mg PO DAILY FLUoxetine HCL [PROzac] 40 mg PO DAILY Pnv 11/Iron Fum/Folic Acid/Om3 [[place] Dha Softgel] 1 each PO DAILY B6/Mfolate/B12/Mineral/Tojn284 [Femquil Capsule] 1 each PO DAILY Discharge Medication List ARIPiprazole [Abilify] 5 mg PO DAILY 07/28/23 [History] Aspirin [Adult Low Dose Aspirin EC] 81 mg PO DAILY 07/28/23 [History] B6/Mfolate/B12/Mineral/Gbcl658 [Femquil Capsule] 1 each PO DAILY 07/28/23 [History] Doxylamine Succinate [Unisom] 25 mg PO DAILY 07/28/23 [History] FLUoxetine HCL [PROzac] 40 mg PO DAILY 07/28/23 [History] Pnv 11/Iron Fum/Folic Acid/Om3 [[place] Dha Softgel] 1 each PO DAILY 07/28/23 [History] Acetaminophen Tab [Tylenol] 650 mg PO Q6H PRN #30 tab 08/07/23 [Rx] Ferrous Sulfate [Iron (65 MG Elemental)] 325 mg PO DAILY #30 tab 08/07/23 [Rx] Ibuprofen [Motrin] 600 mg PO Q6HR PRN #30 tab 08/07/23 [Rx] Follow up Appointment(s)/Referral(s): Tonya Mota MD [STAFF PHYSICIAN] - 1 Week (blood pressure check) Activity/Diet/Wound Care/Special Instructions: Instructions 1. Do not begin any exercise program for 3 weeks. 2. Do not resume sexual relations for 6 weeks or longer if uncomfortable. 3. You may take tub baths or showers at any time. 4. You may use tampons if desired after 6 weeks. 5. Keep any areas repaired with stitches clean and dry. 6. If you are not nursing, wear a good fitting, supportive bra during the day and limit fluid intake for at least 1 week to prevent breast engorgement. 7. Call the office, , within the next week to make appointment for your 6 week checkup if it has not already been made. 8. Report any of the following occurrences to the doctor promptly: a. Heavy, excessive bleeding b. Chills, fever c. Burning or frequency of urination d. Pain or redness and breasts if nursing e. Increasing pain or swelling of vulva (stitches). In addition to the above instructions, the following additional should be followed: 1. No heavy lifting or straining (exercising) until after 6 week checkup. 2. Keep abdominal incision clean and dry: You may wear a dressing if more comfortable. 3. Make office appointment for 2 weeks after delivery date. Discharge Disposition: HOME SELF-CARE
[2023-08-07] MEDS ORDERED: FERROUS SULFATE 325 MG TAB PO SCH (12:30)
--- NOTE | 2023-08-11 16:50 | CDI ---
Documentation Clarification Form Date: 08/11/2023 04:25:22 PM From: Doris Otto Admit Date: 08/04/2023 06:00:00 AM Patient Name: Leonora Neal Visit Number: [id number] Discharge Date: 08/07/2023 01:45:00 PM ATTENTION: The Clinical Documentation Specialists (CDI) and [facility] Coding Staff appreciate your assistance in clarifying documentation. Please respond to the clarification below the line at the bottom and electronically sign. The CDI & [facility] Coding staff will review the response and follow-up if needed. Please note: Queries are made part of the Legal Health Record. If you have any questions, please contact the author of this message via ITS. Dr. Tonya Mota Your patient has a hemoglobin/hematocrit level of 7.0 on 08/06/23. Please clarify if there is an additional diagnosis and/or clinical significance related to these lab values. History/Risk Factors: 33 year old female presented at 38 weeks gestation for induction of labor due to gestational hypertension. Clinical indicators: patient underwent IOL with Pitocin and AROM. She progressed to 8cm and had failure to progress for 5 hours. heart tones were category II with recurrent late decelerations and minimal variability despite resuscitative measures. A Section was recommended and patient agreed. Patient underwent a Section with delivery of a viable male infant in occiput posterior presentation. Normal uterus, fallopian tubes, ovaries, and a small 2 cm right Para tubal cyst noted. Estimated blood loss was 799 mL. Patient did well postoperatively, reports minimal lochia, passing flatus, voiding without difficulty, ambulating, and eating/drinking without nausea or vomiting. HGB 08/04: 11.8 08/06: 7.0 HCT 08/04: 35.1 08/06: 21.1 Treatment: patient was discharged with Motrin, Tylenol, and Iron Is there an additional diagnosis and/or clinical significance related to the above lab result/information: [ X] Acute blood loss anemia [ ] No additional diagnosis/Not clinically significant [ ] Unable to determine [ ] Other, please specify MTDD
== END 2023-08-07 13:45 | disposition home or self-care (01) | DRG 787 ==
LOC: 4FBP 06:00
PROVIDERS: ADMIT Obstetrics & Gynecology; ATTEND Obstetrics & Gynecology
PROC: 10907ZC Drainage of Amniotic Fluid, Therapeutic from Products of Conception, Via Natural or Artificial Opening (ICD-10-PCS; principal; 2023-08-04)
PROC: 3E033VJ Introduction of Other Hormone into Peripheral Vein, Percutaneous Approach (ICD-10-PCS; principal; 2023-08-04)
PROC: 10D00Z1 Extraction of Products of Conception, Low, Open Approach (ICD-10-PCS; principal; 2023-08-04)
DX: O13.4 Gestational [pregnancy-induced] hypertension without significant proteinuria, complicating childbirth (principal); D62 Acute posthemorrhagic anemia; O26.62 Liver and biliary tract disorders in childbirth; O90.81 Anemia of the puerperium; R74.01 Elevation of levels of liver transaminase levels; O99.344 Other mental disorders complicating childbirth; F41.9 Anxiety disorder, unspecified; F32.A Depression, unspecified; O99.73 Diseases of the skin and subcutaneous tissue complicating the puerperium; L29.9 Pruritus, unspecified; O99.824 Streptococcus B carrier state complicating childbirth; O62.0 Primary inadequate contractions; O76 Abnormality in fetal heart rate and rhythm complicating labor and delivery; N83.8 Other noninflammatory disorders of ovary, fallopian tube and broad ligament; O32.8XX0 Maternal care for other malpresentation of fetus, not applicable or unspecified; Z79.899 Other long term (current) drug therapy; Z79.82 Long term (current) use of aspirin; Z86.16 Personal history of COVID-19; Z88.2 Allergy status to sulfonamides; Z3A.38 38 weeks gestation of pregnancy; Z37.0 Single live birth
CPT/HCPCS: 85025; 86850; 86900; 86901

== ENCOUNTER 2023-08-14 15:08 | Outpatient (CLI) | payer BC ==
[2023-08-14 15:49] LABS: Appearance,Urine Cloudy (Clear); Bacteria,Urine Rare /hpf; Bilirubin,Urine Negative (Negative); Blood,Urine Large (Negative); Color,Urine Yellow; Glucose,Urine (UA) Negative (Negative); Ketones,Urine Negative (Negative); Leukocyte Esterase,Urine Large (Negative); Mucus,Urine Rare /hpf; Nitrite,Urine Negative (Negative); Protein,Urine 1+ (Negative); RBC,Urine >182 /hpf (0-5); Specific Gravity,Urine 1.025 (1.001-1.035); Squamous Epithelial Cell,Urine 8 /hpf (0-4); Urobilinogen,Urine <2.0 mg/dL (<2.0); WBC,Urine 172 /hpf (0-5)
[2023-08-14 16:27] LABS: Basophils # (A) 0.1 k/uL (0-0.2); Basophils % (A) 1 %; Eosinophils # (A) 0.4 k/uL (0-0.7); Eosinophils % (A) 3 %; HCT 27.6 % (34.0-46.0); Hypochromasia Moderate; Lymphocytes # (A) 2.2 k/uL (1.0-4.8); Lymphocytes % (A) 19 %; MCH 26.8 pg (25.0-35.0); MCHC 31.3 g/dL (31.0-37.0); MCV 85.6 fL (80.0-100.0); Mean Platelet Volume 7.7; Monocytes # (A) 0.7 k/uL (0-1.0); Monocytes % (A) 6 %; Neutrophils # (A) 7.8 k/uL (1.3-7.7); Neutrophils % (A) 69 %; RBC 3.23 m/uL (3.80-5.40); RDW 14.9 % (11.5-15.5); WBC 11.4 k/uL (3.8-10.6)
[2023-08-14 16:29] LABS: HGB 8.7 gm/dL (11.4-16.0); Platelet Count 573 k/uL (150-450)
[2023-08-14 16:42] LABS: INR 0.9 (<1.2); Prothrombin Time 10.1 sec (10.0-12.5)
[2023-08-14 16:56] LABS: Partial Thromboplastin Time 18.6 sec (22.0-30.0)
[2023-08-14 17:12] LABS: ALT 23 U/L (4-34); AST 35 U/L (14-36); African American GFR (CKD) >90 (>60 ml/min/1.73 sqM); Blood Urea Nitrogen 15 mg/dL (7-17); LDH 462 U/L (120-246); Non-African American GFR(CKD) >90 (>60 ml/min/1.73 sqM); Uric Acid 7.4 mg/dL (3.7-7.4)
[2023-08-14 18:09] VITALS: BP 140/68; PULSE 95; RESP 16; TEMP 97.8
--- NOTE | 2023-08-15 11:09 | P.MSEPDOC ---
Presenting Problems - Arrival Data Date of Arrival on Unit: 08/14/23 Time of Arrival on Unit: 15:09 Mode of Transport: Ambulatory - Complaint OB-Reason for Admission/Chief Complaint: PIH Medical History - Information : 1 Para: 1 Term: 1 : 0 Abortions: Spontaneous or Elective: 0 Number of Living Children: 1 - Gestational Age Gestational Age by GARRET (wks/days): 41 Weeks and 2 Days - History Comment: PIH Review of Systems - Review of Systems Constitutional: No problems Breast: No problems ENT: No problems Cardiovascular: No problems Respiratory: No problems Gastrointestinal: No problems Genitourinary: No problems Musculoskeletal: No problems Neurological: No problems Skin: No problems Vital Signs - Temperature Temperature: 97.8 F Temperature Source: Oral - Pulse Left Brachial Pulse Rate: 95 Pulse Assessment Method: Automatic Cuff - Respirations Respiratory Rate: 16 Oxygen Delivery Method: Room Air O2 Sat by Pulse Oximetry: 95 - Blood Pressure Left Arm Blood Pressure: 140/68 Blood Pressure Mean: 92 Blood Pressure Source: Automatic Cuff Physician Notification - Physician Notified Physician Notified Date: 08/14/23 Physician Notified Time: 17:17 Physician: Erick Jaimes New Order Received: Yes - Notification Comment Comment: Dr. Jaimes given report on pt. Pt bps and PIH labs readback to Orders recieved to d/c pt to home. To educate pt to continue to take procardia and pt may take tylenol for headache. To educate pt to continue to monitor symptoms and blood pressures. Maternal Triage Index - Urgent/Priority 2 Urgent Priority 2: Yes Provider Notified: Erick Jaimes Provider Notified Time: 17:17 Criteria Met for Priority 2: Pt reports elevated blood pressures with systolic of 170 at home, and c/o of headache. Disposition - Disposition OB Disposition: Discharge to home Discharge Date: 08/14/23 Discharge Time: 17:25 I agree with the RN Medical Screening Exam: No Physician's MSE Comment: I have neither seen nor examined the patient. The patient is no longer having had a section last week. Was here for evaluation for preeclampsia. Case reviewed; plan agreed upon as documented in EMR&OBIX.: Yes Diagnosis: RELATED CONDITIONS, UNSPECIFIED, THIRD TRIMESTER
== END 2023-08-14 17:25 | disposition home or self-care (01) ==
LOC: FBPOP 15:08
PROVIDERS: ATTEND Obstetrics & Gynecology
DX: O13.3 Gestational [pregnancy-induced] hypertension without significant proteinuria, third trimester (principal); Z3A.41 41 weeks gestation of pregnancy; Z88.2 Allergy status to sulfonamides; Z79.82 Long term (current) use of aspirin
CPT/HCPCS: 81001; 82565; 83615; 84450; 84460; 84520; 84550; 85025; 85610; 85730; 99215

== ENCOUNTER 2023-08-22 17:50 | Outpatient (CLI) | payer BC ==
[2023-08-22 18:38] VITALS: BP 135/79; PULSE 109; RESP 16; TEMP 97.9
--- NOTE | 2023-08-22 18:56 | P.HPOB ---
History of Present Illness H&P Date: 08/22/23 Chief Complaint: Right aspect of incision bleeding Ms. Neal is a 33 year old who is 2.5 weeks post-operative from primary section who presents to OB triage this evening with complaint of leaking blood from the right aspect of her incision for the past 18 hours after feeling a suture pop. She denies lightheadedness, fevers, chills, and abdominal pain. She is currently taking Keflex for a surgical site infection and has a few days left of the course. Past Medical History Past Medical History: No Reported History History of Any Multi-Drug Resistant Organisms: None Reported Past Surgical History: No Surgical Hx Reported Past Anesthesia/Blood Transfusion Reactions: No Reported Reaction Smoking Status: Never smoker - Past Family History Father Family Medical History: No Reported History Medications and Allergies Home Medications Medication Instructions Recorded Confirmed Type ARIPiprazole [Abilify] 5 mg PO DAILY 07/28/23 08/22/23 History FLUoxetine HCL [PROzac] 40 mg PO DAILY 07/28/23 08/22/23 History Pnv 11/Iron Fum/Folic Acid/Om3 1 each PO DAILY 07/28/23 08/22/23 History [Wesnate Dha Softgel] Acetaminophen Tab [Tylenol] 650 mg PO Q6H PRN #30 tab 08/07/23 08/22/23 Rx Ferrous Sulfate [Iron (65 MG 325 mg PO DAILY #30 tab 08/07/23 08/22/23 Rx Elemental)] Ibuprofen [Motrin] 600 mg PO Q6HR PRN #30 tab 08/07/23 08/22/23 Rx Allergies Allergy/AdvReac Type Severity Reaction Status Date / Time Sulfa (Sulfonamide Allergy Rash/Hives Verified 08/22/23 18:00 Antibiotics) Exam Vital Signs Temp Pulse Resp BP 08/22/23 18:33 97.9 F 109 H 16 135/79 Intake and Output 08/22/23 08/22/23 08/22/23 06:59 14:59 22:59 Other: Weight 128.367 kg On exam, vital signs are stable. There is no fundal tenderness and no tenderness overlying the incision. There a slow trickle of blood is expressed with palpating of the right aspect of the incision where there is a small dehiscence of the skin. The fascia is probed and found to be intact. Assessment and Plan Assessment: 33 year old 2.5 weeks post-op from section with bleeding incision, suspect draining hematoma Plan: The area of the incision where the skin was slightly open was extended, fascia was probed and found to be intact, and the no active bleeding was appreciated. The skin was then sutured. Please see the procedure note for more details. Patient advised to continue the course of Keflex. She will follow up in the office next week for incision check. Time with Patient: Greater than 30 (35 minutes)
--- NOTE | 2023-08-22 19:02 | P.PCN ---
Date of Procedure: 08/22/23 Preoperative Diagnosis: Wound separation, bleeding from incision Postoperative Diagnosis: Same Procedure(s) Performed: Wound exploration and repair Implants: None Anesthesia: local Surgeon: Tonya Mota Estimated Blood Loss (ml): 5 IV fluids (ml): 0 Urine output (ml): 0 Pathology: none sent Condition: stable Disposition: observation Indications for Procedure: Ms. Neal is a 33 year old who is 2.5 weeks post-operative from primary section who presents to OB triage this evening with complaint of leaking blood from the right aspect of her incision for the past 18 hours after feeling a suture pop. She denies lightheadedness, fevers, chills, and abdominal pain. She is currently taking Keflex for a surgical site infection and has a few days left of the course. Risks, benefits, and alternatives to wound exploration and repair discussed with the patient including risk of bleeding and infection. She understands these risks and desires to proceed. Operative Findings: Fascia probed and found to be intact. No active bleeding appreciated in the subcutaneous tissues. Suspect draining hematoma through this small wound separation. Description of Procedure: The area was cleansed. 1% Lidocaine was injected around the wound separation for analgesia. A hemostat was used to open the skin approximately 1-2 centimeters for a large enough area to probe the fascia and explore for active bleeding. The fascia was found to be intact. No active bleeding was appreciated. At this time, 4-0 Monocryl was used to close the skin in an interrupted fashion. This portion of the wound was then covered with steristrips, telfa pad, and abdominal dressing. All counts were correct and the patient tolerated the procedure very well. Patient is instructed to remove the bandage in 24 hours. She will follow up next week in the office for incision check and complete her Keflex course.
[2023-08-22] MEDS: LIDOCAINE 0.5% (PF) 5 MG/ML (50 ML SDV) SQ PRN (19:04)
== END 2023-08-22 19:00 | disposition home or self-care (01) ==
LOC: FBPOP 17:50
PROVIDERS: ATTEND Obstetrics & Gynecology
DX: O75.4 Other complications of obstetric surgery and procedures (principal); Z3A.01 Less than 8 weeks gestation of pregnancy; Z88.2 Allergy status to sulfonamides
CPT/HCPCS: 99213; J2001

== ENCOUNTER 2024-04-27 12:37 | Emergency (ER) | payer BC ==
[2024-04-27 12:44] VITALS: RESP 18
--- NOTE | 2024-04-27 13:02 | ED ---
Abdominal Pain HPI - General Chief Complaint: Abdominal Pain Stated Complaint: Abd pain Time Seen by Provider: 04/27/24 12:51 Source: patient, RN notes reviewed Mode of arrival: ambulatory Limitations: no limitations - History of Present Illness Initial Comments: 34 year-old female presents emergency department chief complaint of right lower quadrant abdominal pain that is relatively constant since Thursday. States that it is a ache and will progress to a stabbing sensation. Endorses nausea. Denies vomiting, chills or fevers. Previous surgical abdominal history of section. denies urinary or bowel symptom changes. - Related Data Home Medications Medication Instructions Recorded Confirmed ARIPiprazole [Abilify] 5 mg PO DAILY 07/28/23 08/22/23 FLUoxetine HCL [PROzac] 40 mg PO DAILY 07/28/23 08/22/23 Pnv 11/Iron Fum/Folic Acid/Om3 1 each PO DAILY 07/28/23 08/22/23 [[place] Dha Softgel] Previous Rx's Medication Instructions Recorded Acetaminophen Tab [Tylenol] 650 mg PO Q6H PRN #30 tab 08/07/23 Ferrous Sulfate [Iron (65 MG 325 mg PO DAILY #30 tab 08/07/23 Elemental)] Ibuprofen [Motrin] 600 mg PO Q6HR PRN #30 tab 08/07/23 Doxycycline [Vibramycin] 100 mg PO BID #13 capsule 04/27/24 Allergies Allergy/AdvReac Type Severity Reaction Status Date / Time Sulfa (Sulfonamide Allergy Rash/Hives Verified 04/27/24 12:44 Antibiotics) Review of Systems ROS Statement: Those systems with pertinent positive or pertinent negative responses have been documented in the HPI. ROS Other: All systems not noted in ROS Statement are negative. Past Medical History Past Medical History: No Reported History History of Any Multi-Drug Resistant Organisms: None Reported Past Surgical History: Cholecystectomy Past Anesthesia/Blood Transfusion Reactions: No Reported Reaction Past Psychological History: Anxiety, Depression Smoking Status: Never smoker Past Alcohol Use History: None Reported Past Drug Use History: None Reported - Past Family History Father Family Medical History: No Reported History General Exam - General Exam Comments Initial Comments: Visual Physical Exam Vital signs reviewed General: Well-appearing, nontoxic, no acute distress. Head: Normocephalic, atraumatic Eyes: PERRLA, EOMI ENT: Airway patent Chest: Nonlabored breathing Skin: No visual rash, normal skin tone Neuro: Alert and oriented 3 Musculoskeletal: No gross abnormalities Limitations: no limitations General appearance: alert, in no apparent distress ENT exam: Present: normal exam, mucous membranes moist Neck exam: Present: normal inspection. Absent: tenderness, meningismus, lymphadenopathy Respiratory exam: Present: normal lung sounds bilaterally. Absent: respiratory distress, wheezes, rales, rhonchi, stridor Cardiovascular Exam: Present: regular rate, normal rhythm, normal heart sounds. Absent: systolic murmur, diastolic murmur, rubs, gallop, clicks GI/Abdominal exam: Present: soft, tenderness (RLQ), normal bowel sounds. Absent: distended, guarding, rebound, rigid Extremities exam: Present: normal inspection, full ROM, normal capillary refill. Absent: tenderness, pedal edema, joint swelling, calf tenderness Back exam: Present: normal inspection Skin exam: Present: warm, dry, intact, normal color. Absent: rash Course Vital Signs 04/27/24 04/27/24 12:42 18:34 Temperature 97.6 F 98.6 F Pulse Rate 72 89 Respiratory 18 18 Rate Blood Pressure 122/82 126/90 O2 Sat by Pulse 99 98 Oximetry Medical Decision Making - Medical Decision Making Was pt. sent in by a medical professional or institution (, PA, SLUDGE FILTRATION ATTENDANT, urgent care, hospital, or retirement...) When possible be specific @ -No Did you speak to anyone other than the patient for history (EMS, parent, family, police, friend...)? What history was obtained from this source @ -No Did you review nursing and triage notes (agree or disagree)? Why? @ -I reviewed and agree with nursing and triage notes Were old charts reviewed (outside hosp., previous admission, EMS record, old EKG, old radiological studies, urgent care reports/EKG's, retirement records)? Report findings @ -No old charts were reviewed Differential Diagnosis (chest pain, altered mental status, abdominal pain women, abdominal pain men, vaginal bleeding, weakness, fever, dyspnea, syncope, headache, dizziness, GI bleed, back pain, seizure, CVA, palpatations, mental health, musculoskeletal)? @ -Differential Abdominal Pain Women: Appendicitis, Cholecystitis, diverticulosis, ischemic bowel, pancreatitis, hepatitis, UTI, gastroenteritis, AAA, incarcerated hernia, bowel obstruction, constipation, inflammatory bowel, hepatitis, peptic ulcer disease, splenic infarction, perforated viscus, vulvitis, ovarian torsion, PID, kidney stone, placenta abruption, this is not meant to be an all-inclusive list EKG interpreted by me (3pts min.). @ -none X-rays interpreted by me (1pt min.). @ -None done CT interpreted by me (1pt min.). @ -CT abdomen pelvis with IV contrast reveals hepatomegaly at 19.7 cm. Multiple cyst extending from the right adnexa into the cul-de-sac spanning 9.7 x 4.1 X 2.9 cm no significant inflammatory changes. Tubo-ovarian abscess unlikely U/S interpreted by me (1pt. min.). @ -Transvaginal ultrasound reveals no evidence for ovarian torsion, complex. To the right ovary suggesting hydrosalpinx and potential right ovarian cyst present What testing was considered but not performed or refused? (CT, X-rays, U/S, labs)? Why? @ -None What meds were considered but not given or refused? Why? @ -None Did you discuss the management of the patient with other professionals (professionals i.e. , PA, SLUDGE FILTRATION ATTENDANT, lab, RT, psych nurse, social studies teacher, cat cracker operator, teacher, officer lieutenant, nurse case management)? Give summary @ -No Was smoking cessation discussed for >3mins.? @ -No Was critical care preformed (if so, how long)? @ -No Were there social determinants of health that impacted care today? How? (Homelessness, low income, unemployed, alcoholism, drug addiction, transportation, low edu. Level, literacy, decrease access to med. care, [facility], rehab)? @ -No Was there de-escalation of care discussed even if they declined (Discuss DNR or withdrawal of care, Hospice)? DNR status @ -No What co-morbidities impacted this encounter? (DM, HTN, Smoking, COPD, CAD, Cancer, CVA, ARF, Chemo, Hep., AIDS, mental health diagnosis, sleep apnea, morbid obesity)? @ -None Was patient admitted / discharged? Hospital course, mention meds given and route, prescriptions, significant lab abnormalities, going to OR and other pertinent info. @ -Discharge. 34-year-old female with right lower quad abdominal pain. Patient was originally evaluated leading note where labs were addition to CT imaging. My evaluation the patient is resting comfortably no signs of acute distress. Patient has mild right lower quadrant abdominal tenderness on palpation. Patient was offered pain medication and antiemetics however she has declined at this time. CBC reveals mild leukocytosis of 12.9 with elevated neutrophils and 9, CBC unremarkable, lactic acid nonelevated 1.6, pancreatic enzymes within normal limits, UA no signs of infection, hCG negative. On CT evaluation there is noted to be multiple cyst extending from the right adnexa into the cul-de-sac with notable inflammatory changes therefore transvaginal ultrasound is ordered to rule out potential ovarian torsion. Transvaginal ultrasound reveals right ovarian hydrosalpinx. On discussion with patient laboratory and imaging findings patient states that she is concerned that her may have been un faithful to her over the past few months and would like to be prophylactically treated for sexually transmitted diseases at this time. Patient is provided with dose of Rocephin and clindamycin emergency department with a 7-day full course of clindamycin for coverage of STIs. All questions answered at bedside and strict return parameters amanda the patient she is verbalized understanding. Recommend that patient contacts university dean tomorrow morning for further workup. Discussed with Dr. Basilio Undiagnosed new problem with uncertain prognosis? @ -No Drug Therapy requiring intensive monitoring for toxicity (Heparin, Nitro, Insulin, Cardizem)? @ -No Were any procedures done? @ -No Diagnosis/symptom? @ -right lower quadrant abdominal pain, hydrosalpinx Acute, or Chronic, or Acute on Chronic? @ -acute Uncomplicated (without systemic symptoms) or Complicated (systemic symptoms)? @ -uncomplicated Side effects of treatment? @ -No Exacerbation, Progression, or Severe Exacerbation? @ -No Poses a threat to life or bodily function? How? (Chest pain, [place], [place], pneumonia, PE, COPD, DKA, ARF, appy, cholecystitis, CVA, Diverticulitis, Homicidal, Suicidal, threat to staff... and all critical care pts) @ -No - Lab Data Result diagrams: 04/27/24 15:45 04/27/24 16:22 Lab Results 04/27/24 04/27/24 04/27/24 Range/Units 14:28 14:28 15:45 WBC 12.9 H (3.8-10.6) k/uL RBC 5.92 H (3.80-5.40) m/uL Hgb 14.7 (11.4-16.0) gm/dL Hct 46.2 H (34.0-46.0) % MCV 78.1 L (80.0-100.0) fL MCH 24.9 L (25.0-35.0) pg MCHC 31.8 (31.0-37.0) g/dL RDW 14.7 (11.5-15.5) % Plt Count 302 (150-450) k/uL MPV 7.8 Neutrophils % 70 % Lymphocytes % 22 % Monocytes % 5 % Eosinophils % 1 % Basophils % 0 % Neutrophils # 9.0 H (1.3-7.7) k/uL Lymphocytes # 2.8 (1.0-4.8) k/uL Monocytes # 0.7 (0-1.0) k/uL Eosinophils # 0.2 (0-0.7) k/uL Basophils # 0.1 (0-0.2) k/uL Sodium (137-145) mmol/L Potassium (3.5-5.1) mmol/L Chloride (98-107) mmol/L Carbon Dioxide (22-30) mmol/L Anion Gap mmol/L BUN (7-17) mg/dL Creatinine (0.52-1.04) mg/dL Est GFR (CKD-EPI)AfAm (>60 ml/min/1.73 sqM) Est GFR (CKD-EPI)NonAf (>60 ml/min/1.73 sqM) Glucose (74-99) mg/dL Plasma Lactic Acid Loco (0.7-2.0) mmol/L Calcium (8.4-10.2) mg/dL Total Bilirubin (0.2-1.3) mg/dL AST (14-36) U/L ALT (4-34) U/L Alkaline Phosphatase (38-126) U/L Total Protein (6.3-8.2) g/dL Albumin (3.5-5.0) g/dL Amylase (30-110) U/L Lipase (23-300) U/L Urine Color Colorless Urine Appearance Clear (Clear) Urine pH 7.0 (5.0-8.0) Ur Specific [place] 1.007 (1.001-1.035) Urine Protein Negative (Negative) Urine Glucose (UA) Negative (Negative) Urine Ketones Negative (Negative) Urine Blood Negative (Negative) Urine Nitrite Negative (Negative) Urine Bilirubin Negative (Negative) Urine Urobilinogen <2.0 (<2.0) mg/dL Ur Leukocyte Esterase Negative (Negative) Urine HCG, Qual Not Detected (Not Detectd) 04/27/24 04/27/24 Range/Units 15:45 16:22 WBC (3.8-10.6) k/uL RBC (3.80-5.40) m/uL Hgb (11.4-16.0) gm/dL Hct (34.0-46.0) % MCV (80.0-100.0) fL MCH (25.0-35.0) pg MCHC (31.0-37.0) g/dL RDW (11.5-15.5) % Plt Count (150-450) k/uL MPV Neutrophils % % Lymphocytes % % Monocytes % % Eosinophils % % Basophils % % Neutrophils # (1.3-7.7) k/uL Lymphocytes # (1.0-4.8) k/uL Monocytes # (0-1.0) k/uL Eosinophils # (0-0.7) k/uL Basophils # (0-0.2) k/uL Sodium 136 L (137-145) mmol/L Potassium 4.9 (3.5-5.1) mmol/L Chloride 104 (98-107) mmol/L Carbon Dioxide 24 (22-30) mmol/L Anion Gap 8 mmol/L BUN 10 (7-17) mg/dL Creatinine 0.72 (0.52-1.04) mg/dL Est GFR (CKD-EPI)AfAm >90 (>60 ml/min/1.73 sqM) Est GFR (CKD-EPI)NonAf >90 (>60 ml/min/1.73 sqM) Glucose 85 (74-99) mg/dL Plasma Lactic Acid Loco 1.6 (0.7-2.0) mmol/L Calcium 10.5 H (8.4-10.2) mg/dL Total Bilirubin 0.8 (0.2-1.3) mg/dL AST 35 (14-36) U/L ALT 22 (4-34) U/L Alkaline Phosphatase 89 (38-126) U/L Total Protein 7.7 (6.3-8.2) g/dL Albumin 4.4 (3.5-5.0) g/dL Amylase 65 (30-110) U/L Lipase 18 L (23-300) U/L Urine Color Urine Appearance (Clear) Urine pH (5.0-8.0) Ur Specific [place] (1.001-1.035) Urine Protein (Negative) Urine Glucose (UA) (Negative) Urine Ketones (Negative) Urine Blood (Negative) Urine Nitrite (Negative) Urine Bilirubin (Negative) Urine Urobilinogen (<2.0) mg/dL Ur Leukocyte Esterase (Negative) Urine HCG, Qual (Not Detectd) Disposition Clinical Impression: Hydrosalpinx, Abdominal pain Disposition: HOME SELF-CARE Condition: Good Instructions (If sedation given, give patient instructions): Ovarian Cyst (ED) Additional Instructions: Return emergency department any new or worsening symptoms. Recommend that you contact your university dean in the morning to schedule an appointment for further evaluation. Prescriptions: Doxycycline [Vibramycin] 100 mg PO BID #13 capsule Is patient prescribed a controlled substance at d/c from ED?: No Referrals: Vincenzo Hdez Jr, [Primary Care Provider] - 1-2 days Time of Disposition: 17:48
[2024-04-27 14:52] LABS: Appearance,Urine Clear (Clear); Bilirubin,Urine Negative (Negative); Blood,Urine Negative (Negative); Color,Urine Colorless; Glucose,Urine (UA) Negative (Negative); Ketones,Urine Negative (Negative); Leukocyte Esterase,Urine Negative (Negative); Nitrite,Urine Negative (Negative); Protein,Urine Negative (Negative); Specific Gravity,Urine 1.007 (1.001-1.035); Urobilinogen,Urine <2.0 mg/dL (<2.0)
--- NOTE | 2024-04-27 16:23 | CT ---
EXAMINATION TYPE: CT abdomen pelvis w con DATE OF EXAM: 04/27/2024 COMPARISON: NONE HISTORY: 34-year-old female RLQ abdominal pain TECHNIQUE: Contiguous axial scanning of the abdomen and pelvis following administration of 100 ml Iso patti 300 IV contrast. Delayed images through the kidneys and coronal/sagittal reconstructions perform ed. CT DLP: 1947 mGycm Automated exposure control for dose reduction was used. FINDINGS: The heart is normal size. There is a small basilar pericardial effusion. Strandy atelectasis in the l ower lungs. Trace bilateral pleural effusion. Liver mildly enlarged at 19.7 cm. No focal liver lesion or biliary ductal dilatation. Portal venous s ystem is patent. Adrenal glands, kidneys, spleen, and pancreas within normal limits. No dilated small bowel, free fluid, or free air. No mesenteric or retroperitoneal lymphadenopathy. Normal appendix. Scattered mild stool within the right side of the colon. No pericolonic inflammatory change. Bladder is urine distended. Uterus anteverted. Possible multiple cysts extending from the right adnexa down into the cul-de-sac, spanning 9.4 cm scrap kettle tender niocaudal, 4.1 cm AP, and 2.9 cm wide, refer to axial image 71 and sagittal image 64. The exact etiol ogy is unclear. No significant surrounding inflammatory changes. Bones: No osseous destructive process. IMPRESSION: 1. SMALL BASILAR PERICARDIAL EFFUSION. ADDITIONALLY, THERE ARE TRACE BILATERAL PLEURAL EFFUSIONS. EXA CT ETIOLOGY IS UNCLEAR. CLINICALLY CORRELATE. 2. MILD HEPATOMEGALY AT 19.7 CM. 3. POSSIBLE MULTIPLE CYSTS EXTENDING FROM THE RIGHT ADNEXA DOWN INTO THE CUL-DE-SAC SPANNING 9.7 X 4. 1 X 2.9 CM. EXACT ETIOLOGY IS UNCLEAR. NO SIGNIFICANT INFLAMMATORY CHANGES ARE SEEN HERE MAKING TUBO- OVARIAN ABSCESS UNLIKELY. HYDROSALPINX IS POSSIBLE IS MULTIPLE CYSTS OF THE RIGHT OVARY. GIVEN PAT IENT'S RIGHT LOWER QUADRANT PAIN, CONSIDER FURTHER EVALUATION WITH PELVIC ULTRASOUND ALONG WITH DOPPL ER ASSESSMENT OF THE OVARIAN VASCULATURE. 4. NORMAL APPENDIX. [facility], , 04/27/2024 4:21 PM
[2024-04-27 16:30] LABS: Basophils # (A) 0.1 k/uL (0-0.2); Basophils % (A) 0 %; Eosinophils # (A) 0.2 k/uL (0-0.7); Eosinophils % (A) 1 %; HCT 46.2 % (34.0-46.0); HGB 14.7 gm/dL (11.4-16.0); Lymphocytes # (A) 2.8 k/uL (1.0-4.8); Lymphocytes % (A) 22 %; MCH 24.9 pg (25.0-35.0); MCHC 31.8 g/dL (31.0-37.0); MCV 78.1 fL (80.0-100.0); Mean Platelet Volume 7.8; Monocytes # (A) 0.7 k/uL (0-1.0); Monocytes % (A) 5 %; Neutrophils % (A) 70 %; Platelet Count 302 k/uL (150-450); RBC 5.92 m/uL (3.80-5.40); RDW 14.7 % (11.5-15.5); WBC 12.9 k/uL (3.8-10.6)
[2024-04-27 16:55] LABS: ALT 22 U/L (4-34); African American GFR (CKD) >90 (>60 ml/min/1.73 sqM); Amylase 65 U/L (30-110); Anion Gap 8 mmol/L; Blood Urea Nitrogen 10 mg/dL (7-17); Calcium 10.5 mg/dL (8.4-10.2); Carbon Dioxide 24 mmol/L (22-30); Chloride 104 mmol/L (98-107); Glucose 85 mg/dL (74-99); Lipase 18 U/L (23-300); Non-African American GFR(CKD) >90 (>60 ml/min/1.73 sqM); Sodium 136 mmol/L (137-145); Total Bilirubin 0.8 mg/dL (0.2-1.3)
[2024-04-27 16:58] LABS: AST 35 U/L (14-36); Alkaline Phosphatase 89 U/L (38-126); Potassium 4.9 mmol/L (3.5-5.1)
[2024-04-27 16:59] LABS: Albumin 4.4 g/dL (3.5-5.0); Total Protein 7.7 g/dL (6.3-8.2)
--- NOTE | 2024-04-27 17:29 | US ---
EXAMINATION TYPE: US transvaginal DATE OF EXAM: 04/27/2024 COMPARISON: same day CT CLINICAL INDICATION: Female, 34 years old with history of RLQ ab pain, ovarian cysts r/o torsion; ?hy drosalpinx TECHNIQUE: . Transvaginal sonographic images were medically necessary to better assess the followin g anatomy: Ovaries Date of LMP: 04/06/24 EXAM MEASUREMENTS: Uterus: 8.9x3.9x5.8 cm Endometrial Stripe: 1.0 cm Right Ovary: 3.9x3.6x2.8 cm Left Ovary: non-vis 1. Uterus: Anteverted nabothian cysts, cystic area at scar 2. Endometrium: wnl 3. Right Ovary: complex area the right area appears to represent cog-wheel sign and elongate suggest ing hydrosalpinx 4. Left Ovary: Obscured by overlying bowel gas Spectral, color and waveform doppler imaging shows good arterial and venous flow within the ovaries ; there is no evidence for ovarian torsion. 5. Bilateral Adnexa: Obscured by overlying bowel gas 6. Posterior cul-de-sac: trace free fluid IMPRESSION: 1. Right hydrosalpinx 2. There may be a right ovarian cyst present. [facility], , 04/27/2024 5:27 PM
[2024-04-27] MEDS: DOXYCYCLINE 100 MG CAP PO STA (18:17)
[2024-04-27] MEDS: cefTRIAXone IN SWFI 1,000 MG/10 ML SYRINGE IVP STA (18:17)
[2024-04-27 18:35] VITALS: BP 126/90; PULSE 89; TEMP 98.6
== END 2024-04-27 18:35 | disposition home or self-care (01) ==
LOC: EC 12:37
CPT/HCPCS: 36415; 74177; 76830; 80053; 81003; 81025; 82150; 83605; 83690; 85025; 93976; 96374; 99284